=== PATIENT | female | born 1940 | race Caucasian/White ===

== ENCOUNTER 2024-05-10 09:28 | Inpatient (IN) | payer OTHER ==
[2024-05-10 09:50] VITALS: BMI 31.4
[2024-05-10 10:44] LABS: HEMATOCRIT 42.6 % (32.4-45.2); HEMOGLOBIN 13.7 G/dL (10.7-15.3); MCH 30.1 pg (25.7-33.7); MCHC 32.1 g/dl (32.0-36.0); MEAN CELL VOLUME 93.7 fl (80-96); MEAN PLT VOLUME 8.2 fl (7.5-11.1); RBC 4.55 10^6/uL (3.60-5.2); RDW 17.3 % (11.6-15.6); WHITE BLOOD COUNT 11.7 10^3/uL (4.0-10.8)
[2024-05-10] MEDS: CEFTRIAXONE 1 GM in DEXTROSE 5%-WATER - 100 ML IVPB ONE (10:45)
[2024-05-10] MEDS ORDERED: cefTRIAXone SODIUM 1 GM VIAL ONE (10:50)
[2024-05-10 11:07] LABS: ALBUMIN 4.2 g/dl (3.4-5.0); ALK PHOS 92 U/L (45-117); ANION GAP 10 mmol/L (4-13); BILIRUBIN,TOTAL 0.7 mg/dl (0.2-1); CALCIUM 11.2 mg/dl (8.5-10.1); CHLORIDE 105 mmol/L (98-107); CO2 24 mmol/L (21-32); CREATININE 1.4 mg/dl (0.6-1.3); GLUCOSE,RANDOM 220 mg/dl (74-106); POTASSIUM 4.6 mmol/L (3.5-5.1); SGOT/AST 19 U/L (15-37); SGPT/ALT 16 U/L (7-52); SODIUM 139 mmol/L (136-145); TOT PROT 7.2 g/dl (6.4-8.2)
[2024-05-10] MEDS: SODIUM CHLORIDE 0.9% 500 ML INFUS.BAG IV ONE (11:38)
[2024-05-10 11:44] LABS: PLATELET ESTIMATE ADEQUATE
[2024-05-10] MEDS ORDERED: ACETAMINOPHEN 325 MG TABLET (FP) PO PRN (16:44)
[2024-05-10] MEDS: ATORVASTATIN CA 40 MG TABLET (FP) PO SCH (21:42)
[2024-05-10] MEDS: INSULIN ASPART SLIDING SCALE (NOVOLOG) 1 VIAL SQ SCH (21:42)
[2024-05-10] MEDS: CARVEDILOL 3.125 MG TABLET (FP) PO SCH (21:42)
[2024-05-11 08:58] LABS: ALBUMIN 3.5 g/dl (3.4-5.0); BILIRUBIN,TOTAL 0.5 mg/dl (0.2-1); CALCIUM 10.2 mg/dl (8.5-10.1); CREATININE 1.3 mg/dl (0.6-1.3); MAGNESIUM 1.6 mg/dL (1.8-2.4); PHOSPHOROUS 3.5 (2.5-4.9); POTASSIUM 4.6 mmol/L (3.5-5.1)
[2024-05-11] MEDS: ASPIRIN 81 MG CHEWABLE TABLETS PO SCH (10:35)
[2024-05-11] MEDS: CEFTRIAXONE 1 GM in DEXTROSE 5%-WATER - 50 ML IVPB SCH (10:35)
[2024-05-11 11:34] VITALS: RESP 18
[2024-05-11 12:09] LABS: BASO % 0.3 % (0-2.0); EOS % 3.6 % (0-4.5); HEMATOCRIT 35.9 % (32.4-45.2); HEMOGLOBIN 11.9 GM/dL (10.7-15.3); LYMPH % 26.5 % (8-40); MCH 29.9 pg (25.7-33.7); MEAN CELL VOLUME 90.4 fl (80-96); MEAN PLT VOLUME 8.6 fl (7.5-11.1); MONO % 11.2 % (3.8-10.2); NEUT % 58.4 % (42.8-82.8); PLATELET COUNT 209 10^3/uL (134-434); RBC 3.97 M/mm3 (3.60-5.2); RDW 17.6 % (11.6-15.6); WHITE BLOOD COUNT 8.7 K/mm3 (4.0-10.0)
[2024-05-11 14:38] VITALS: BP 164/87; PULSE 74; TEMP 98.6
== END 2024-05-11 15:27 | disposition home or self-care (01) | DRG 690 ==
LOC: FER 09:28 → FM/S 11:43
DX: N39.0 Urinary tract infection, site not specified (principal); N17.9 Acute kidney failure, unspecified; Z59.00 Homelessness unspecified; F03.90 Unspecified dementia, unspecified severity, without behavioral disturbance, psychotic disturbance, mood disturbance, and anxiety; E11.9 Type 2 diabetes mellitus without complications; I10 Essential (primary) hypertension; I25.10 Atherosclerotic heart disease of native coronary artery without angina pectoris; E78.5 Hyperlipidemia, unspecified; Z95.5 Presence of coronary angioplasty implant and graft
CPT/HCPCS: 0241U-QW; 36415; 76775-TC; 80053; 81003; 81015; 82962; 83735; 84100; 85025; 85027; 86140; 87086; 99285-25

== ENCOUNTER 2024-05-21 10:32 | Emergency (ER) | payer OTHER ==
[2024-05-21 10:41] VITALS: BP 162/76; PULSE 65; RESP 18; TEMP 98.2; BMI 31.2
[2024-05-21 11:50] LABS: HEMATOCRIT 38.5 % (32.4-45.2); HEMOGLOBIN 12.2 G/dL (10.7-15.3); MCH 30.3 pg (25.7-33.7); MCHC 31.7 g/dl (32.0-36.0); MEAN CELL VOLUME 95.6 fl (80-96); MEAN PLT VOLUME 9.2 fl (7.5-11.1); PLATELET COUNT 195.8 10^3/uL (134-434); RBC 4.03 10^6/uL (3.60-5.2); RDW 18.3 % (11.6-15.6); WHITE BLOOD COUNT 8.1 10^3/uL (4.0-10.8)
[2024-05-21 12:01] LABS: EPITHELIAL CELLS 0-5 /hpf
[2024-05-21 12:03] LABS: ALBUMIN 3.8 g/dl (3.4-5.0); ALK PHOS 94 U/L (45-117); ANION GAP 7 mmol/L (4-13); BILIRUBIN,TOTAL 0.5 mg/dl (0.2-1); CALCIUM 10.5 mg/dl (8.5-10.1); CHLORIDE 107 mmol/L (98-107); CO2 23 mmol/L (21-32); CREATININE 1.4 mg/dl (0.6-1.3); GLUCOSE,RANDOM 260 mg/dl (74-106); MAGNESIUM 1.7 mg/dL (1.8-2.4); POTASSIUM 4.9 mmol/L (3.5-5.1); SGOT/AST 16 U/L (15-37); SGPT/ALT 14 U/L (7-52); SODIUM 137 mmol/L (136-145); TOT PROT 6.6 g/dl (6.4-8.2)
[2024-05-21 12:41] LABS: ANISOCYTOSIS 1+; PLATELET ESTIMATE ADEQUATE
== END 2024-05-21 14:20 | disposition home or self-care (01) ==
LOC: FER 10:32
DX: N39.0 Urinary tract infection, site not specified (principal); R50.9 Fever, unspecified; R30.9 Painful micturition, unspecified
CPT/HCPCS: 36415; 80053; 81003; 81015; 83735; 85027; 87086; 87186; 99284-25

== ENCOUNTER 2024-05-26 00:19 | Emergency (ER) | payer OTHER ==
[2024-05-26 00:27] VITALS: BP 162/82; PULSE 63; RESP 18; TEMP 97.2; BMI 31.2
[2024-05-26] MEDS ORDERED: LOSARTAN POTASSIUM 50 MG TABLET PO ONE (22:43)
== END 2024-05-26 01:02 | disposition home or self-care (01) ==
LOC: FER 00:19
DX: R35.0 Frequency of micturition (principal); R30.0 Dysuria; N39.0 Urinary tract infection, site not specified; R10.13 Epigastric pain; R07.2 Precordial pain
CPT/HCPCS: 71045-TC-FY; 99283-25

== ENCOUNTER 2024-05-26 22:44 | Inpatient (IN) | payer OTHER ==
[2024-05-26] MEDS ORDERED: LOSARTAN POTASSIUM 50 MG TABLET ONE (22:58)
[2024-05-26] MEDS: LOSARTAN POTASSIUM 50 MG TABLET PO ONE (23:13)
[2024-05-27 00:31] LABS: N-TERMINAL BNP 442.5 pg/ml (5-450)
[2024-05-27 00:36] LABS: BASO % 0.6 % (0-2.0); EOS % 4.4 % (0-4.5); HEMATOCRIT 35.9 % (32.4-45.2); LYMPH % 37.7 % (8-40); MCH 30.7 pg (25.7-33.7); MCHC 33.3 g/dl (32.0-36.0); MEAN CELL VOLUME 92.3 fl (80-96); MEAN PLT VOLUME 8.7 fl (7.5-11.1); MONO % 15.6 % (3.8-10.2); NEUT % 41.7 % (42.8-82.8); PLATELET COUNT 219 10^3/uL (134-434); RBC 3.89 M/mm3 (3.60-5.2); RDW 18.3 % (11.6-15.6)
[2024-05-27] MEDS ORDERED: DOCUSATE SODIUM 100 MG CAPSULE (FP) PO PRN (01:11)
[2024-05-27 01:34] LABS: MAGNESIUM 1.8 mg/dL (1.8-2.4)
[2024-05-27 02:25] LABS: BLOOD UREA NITROGEN 29.4 mg/dL (7-18); CALCIUM 10.7 mg/dL (8.5-10.1); CREATININE 1.6 mg/dL (0.55-1.3)
[2024-05-27 02:37] LABS: INR 0.95 (0.83-1.09); PROTHROMBIN TIME (PATIENT) 10.9 SEC (9.7-13.0)
[2024-05-27] MEDS: INSULIN ASPART SLIDING SCALE (NOVOLOG) 1 VIAL SQ SCH (07:51)
[2024-05-27] MEDS: CARVEDILOL 3.125 MG TABLET (FP) PO SCH (10:17)
[2024-05-27] MEDS: LOSARTAN POTASSIUM 50 MG TABLET PO SCH (10:17)
[2024-05-27] MEDS: ASPIRIN COATED 81 MG TABLET.EC PO SCH (10:17)
[2024-05-27] MEDS: PIPERACILLIN/TAZOB 2.25 GM 2.25 GM in DEXTROSE 5%-WATER - 50 ML IVPB SCH (18:04)
[2024-05-27] MEDS: ATORVASTATIN CA 40 MG TABLET (FP) PO SCH (21:23)
[2024-05-28 09:02] LABS: ALBUMIN 3.5 g/dl (3.4-5.0); BILIRUBIN,TOTAL 0.6 mg/dl (0.2-1); CALCIUM 10.5 mg/dl (8.5-10.1); CREATININE 1.5 mg/dl (0.6-1.3); POTASSIUM 5.1 mmol/L (3.5-5.1); TOT PROT 6.1 g/dl (6.4-8.2)
[2024-05-28 10:00] LABS: BASO % 0.5 % (0-2.0); EOS % 3.3 % (0-4.5); HEMATOCRIT 36.2 % (32.4-45.2); HEMOGLOBIN 11.7 GM/dL (10.7-15.3); LYMPH % 28.6 % (8-40); MCH 30.2 pg (25.7-33.7); MCHC 32.4 g/dl (32.0-36.0); MEAN CELL VOLUME 93.1 fl (80-96); MEAN PLT VOLUME 8.9 fl (7.5-11.1); MONO % 13.3 % (3.8-10.2); NEUT % 54.3 % (42.8-82.8); PLATELET COUNT 206 10^3/uL (134-434); RBC 3.89 M/mm3 (3.60-5.2); RDW 18.6 % (11.6-15.6); WHITE BLOOD COUNT 7.5 K/mm3 (4.0-10.0)
[2024-05-28] MEDS: ERTAPENEM SODIUM 1 GM in SODIUM CHLORIDE 50 ML IVPB SCH (11:39)
[2024-05-28] MEDS: ERTAPENEM SODIUM 1 GM/50 ML PRE-DOCKED IVPB SCH (19:34)
[2024-05-29 07:46] LABS: INR 0.97 (0.83-1.09); PROTHROMBIN TIME (PATIENT) 11.1 SEC (9.7-13.0)
[2024-05-29 08:10] LABS: ALBUMIN 3.6 g/dl (3.4-5.0); CALCIUM 10.8 mg/dl (8.5-10.1); CREATININE 1.3 mg/dl (0.6-1.3); MAGNESIUM 1.9 mg/dL (1.8-2.4); PHOSPHOROUS 3.4 (2.5-4.9); POTASSIUM 5.1 mmol/L (3.5-5.1)
[2024-05-29] MEDS: ACETAMINOPHEN 325 MG TABLET (FP) PO PRN (21:57)
[2024-05-30 13:25] VITALS: BMI 31.4
[2024-05-30 16:10] LABS: PARATHYROID HORM INTACT 109 pg/mL (15-65)
[2024-05-31 03:10] VITALS: RESP 16
[2024-05-31 14:14] VITALS: BP 142/76; PULSE 58; TEMP 98
== END 2024-05-31 14:16 | disposition home or self-care (01) | DRG 690 ==
LOC: FER 22:44 → FM/S 05-27 00:51 → UNDOADMOB 05-27 01:23 → OBSVTOIN 05-30 07:45
PROVIDERS: ADMIT Internal Medicine; ATTEND Internal Medicine
PROC: 02HV33Z Insertion of Infusion Device into Superior Vena Cava, Percutaneous Approach (ICD-10-PCS; principal; 2024-05-29)
PROC: B548ZZA Ultrasonography of Superior Vena Cava, Guidance (ICD-10-PCS; 2024-05-29)
DX: N39.0 Urinary tract infection, site not specified (principal); Z16.12 Extended spectrum beta lactamase (ESBL) resistance; Z59.00 Homelessness unspecified; I10 Essential (primary) hypertension; E11.9 Type 2 diabetes mellitus without complications
CPT/HCPCS: 36415; 36569; 71045-TC-FY; 80048; 80053; 82040; 82310; 82962; 83735; 83880; 83970; 84100; 84484; 85025; 85610; 93005; 97116-GP; 97162-GP; 99285-25; G0378

== ENCOUNTER 2024-06-01 11:30 | Day surgery (SDC) | payer OTHER ==
[2024-06-01] MEDS: ERTAPENEM SODIUM 1 GM in SODIUM CHLORIDE 50 ML IVPB SCH (12:09)
[2024-06-01 13:18] VITALS: BP 107/62; PULSE 67; RESP 18; TEMP 98.3
== END 2024-06-01 13:24 | disposition home or self-care (01) ==
LOC: FINFUSION 11:30 → FM/S 11:30 → FINFUSION 13:24
PROVIDERS: ATTEND Internal Medicine Infectious Disease
DX: N39.0 Urinary tract infection, site not specified (principal); B96.29 Other Escherichia coli [E. coli] as the cause of diseases classified elsewhere; Z16.12 Extended spectrum beta lactamase (ESBL) resistance; I25.10 Atherosclerotic heart disease of native coronary artery without angina pectoris; I10 Essential (primary) hypertension; E11.9 Type 2 diabetes mellitus without complications; Z79.84 Long term (current) use of oral hypoglycemic drugs
CPT/HCPCS: 96365

== ENCOUNTER 2024-06-02 11:00 | Day surgery (SDC) | payer OTHER ==
[2024-06-02] MEDS: ERTAPENEM SODIUM 1 GM in SODIUM CHLORIDE 50 ML IVPB ONE (11:20)
[2024-06-02 12:12] VITALS: BP 110/50; PULSE 62; RESP 14; TEMP 97.3
== END 2024-06-02 12:12 | disposition home or self-care (01) ==
LOC: FINFUSION 11:00 → FM/S 11:00 → FINFUSION 12:12
PROVIDERS: ATTEND Internal Medicine Infectious Disease
DX: N39.0 Urinary tract infection, site not specified (principal); B96.29 Other Escherichia coli [E. coli] as the cause of diseases classified elsewhere; Z16.12 Extended spectrum beta lactamase (ESBL) resistance; I10 Essential (primary) hypertension; E11.9 Type 2 diabetes mellitus without complications; Z79.84 Long term (current) use of oral hypoglycemic drugs
CPT/HCPCS: 96365

== ENCOUNTER 2024-06-03 11:17 | Day surgery (SDC) | payer OTHER ==
[2024-06-03] MEDS: ERTAPENEM SODIUM 1 GM in SODIUM CHLORIDE 50 ML IVPB ONE (11:40)
[2024-06-03 12:32] VITALS: BP 110/52; PULSE 57; RESP 19; TEMP 97.5
== END 2024-06-03 12:25 | disposition home or self-care (01) ==
LOC: FINFUSION 11:17 → FM/S 11:22 → FINFUSION 12:25
PROVIDERS: ATTEND Internal Medicine Infectious Disease
DX: N39.0 Urinary tract infection, site not specified (principal); B96.29 Other Escherichia coli [E. coli] as the cause of diseases classified elsewhere; Z16.12 Extended spectrum beta lactamase (ESBL) resistance
CPT/HCPCS: 96365

== ENCOUNTER 2024-06-04 11:14 | Day surgery (SDC) | payer OTHER ==
[2024-06-04] MEDS: ERTAPENEM SODIUM 1 GM in SODIUM CHLORIDE 50 ML IVPB ONE (11:50)
[2024-06-04 13:09] VITALS: BP 121/60; PULSE 58; RESP 18; TEMP 98.4
== END 2024-06-04 13:10 | disposition home or self-care (01) ==
LOC: FINFUSION 11:14 → FM/S 11:15 → FINFUSION 13:10
PROVIDERS: ATTEND Internal Medicine Infectious Disease
DX: N39.0 Urinary tract infection, site not specified (principal); B96.29 Other Escherichia coli [E. coli] as the cause of diseases classified elsewhere; Z16.12 Extended spectrum beta lactamase (ESBL) resistance
CPT/HCPCS: 96365

== ENCOUNTER 2024-06-05 11:37 | Day surgery (SDC) | payer OTHER ==
[2024-06-05] MEDS: ERTAPENEM SODIUM 1 GM in SODIUM CHLORIDE 50 ML IVPB ONE (12:10)
[2024-06-05 12:49] VITALS: BP 107/62; PULSE 59; RESP 18; TEMP 98
== END 2024-06-05 13:13 | disposition home or self-care (01) ==
LOC: FINFUSION 11:37 → FM/S 11:38 → FINFUSION 13:13
PROVIDERS: ATTEND Internal Medicine Infectious Disease
DX: N39.0 Urinary tract infection, site not specified (principal); B96.29 Other Escherichia coli [E. coli] as the cause of diseases classified elsewhere; Z16.12 Extended spectrum beta lactamase (ESBL) resistance
CPT/HCPCS: 96365

== ENCOUNTER 2024-06-06 11:23 | Day surgery (SDC) | payer OTHER ==
[2024-06-06] MEDS: ERTAPENEM SODIUM 1 GM in SODIUM CHLORIDE 50 ML IVPB ONE (11:49)
[2024-06-06 13:11] VITALS: BP 120/69; PULSE 68; RESP 14; TEMP 98
== END 2024-06-06 13:22 | disposition home or self-care (01) ==
LOC: FINFUSION 11:23 → FM/S 11:25 → FINFUSION 13:22
PROVIDERS: ATTEND Internal Medicine Infectious Disease
DX: N39.0 Urinary tract infection, site not specified (principal); B96.29 Other Escherichia coli [E. coli] as the cause of diseases classified elsewhere; Z16.12 Extended spectrum beta lactamase (ESBL) resistance
CPT/HCPCS: 96365

== ENCOUNTER 2024-07-29 10:25 | Emergency (ER) | payer OTHER ==
[2024-07-29 10:49] VITALS: BP 170/99; PULSE 66; RESP 18; TEMP 98.2; BMI 31.6
[2024-07-29 11:35] LABS: HEMOGLOBIN 13.2 G/dL (10.7-15.3); MCH 31.5 pg (25.7-33.7); MCHC 33.7 g/dl (32.0-36.0); MEAN CELL VOLUME 93.3 fl (80-96); MEAN PLT VOLUME 9.4 fl (7.5-11.1); PLATELET COUNT 184.2 10^3/uL (134-434); RBC 4.18 10^6/uL (3.60-5.2); RDW 15.9 % (11.6-15.6); WHITE BLOOD COUNT 7.9 10^3/uL (4.0-10.8)
[2024-07-29 11:49] LABS: EPITHELIAL CELLS 0-5 /hpf
[2024-07-29 12:15] LABS: ALBUMIN 4.2 g/dl (3.4-5.0); BILIRUBIN,TOTAL 0.5 mg/dl (0.2-1); CALCIUM 11.2 mg/dl (8.5-10.1); CREATININE 1.3 mg/dl (0.6-1.3); POTASSIUM 4.6 mmol/L (3.5-5.1)
[2024-07-29 15:56] LABS: HIV INTERPRETATION NEGATIVE (NEGATIVE)
[2024-07-30 10:35] LABS: MAGNESIUM 1.8 mg/dL (1.8-2.4)
== END 2024-07-29 17:45 | disposition home or self-care (01) ==
LOC: FER 10:25
DX: R07.89 Other chest pain (principal)
CPT/HCPCS: 36415; 71046-TC-FY; 80053; 81003; 81015; 83735; 84484; 85027; 86803; 87389; 93005; 99285-25